=== PATIENT | female | born 1985 | race Caucasian/White ===

== ENCOUNTER 2018-10-17 16:21 | Outpatient (CLI) | payer OTHER ==
[~2018-10-17] VITALS: Ht 177.8 cm; Wt 88.6 kg
[2018-10-17 16:34] VITALS: BP 126/82; PULSE 86; TEMP 98.3
[2018-10-17] MEDS ORDERED: PRENATAL MVI (16:38)
[2018-10-17] MEDS ORDERED: ASPIRIN 81M81 MG/TA2 PO (16:38)
== END 2018-10-17 16:50 | disposition home or self-care (01) ==
LOC: LDRO 16:21
DX: O42.913 Preterm premature rupture of membranes, unspecified as to length of time between rupture and onset of labor, third trimester (principal); Z3A.34 34 weeks gestation of pregnancy